=== PATIENT | male | born 1935 | race African-American/Black ===

== ENCOUNTER 2022-01-06 13:36 | Inpatient (IN) | payer BC, MEDICARE ==
[~2022-01-06] VITALS: Ht 182.9 cm; Wt 81.6 kg
[2022-01-06] MEDS ORDERED: DEXTROSE 50% WATER 50ML SYRINGE IV ONE ×2 (14:15→15:45)
[2022-01-06 14:26] LABS: BASOPHILS % 0.3 % (0.0-2.0); EOSINOPHILS % 0.7 % (0.0-5.0); HEMATOCRIT. 35.9 % (42.0-52.0); HEMOGLOBIN. 11.9 g/dL (14.0-18.0); LYMPHOCYTES % 11.4 % (20.0-50.0); MEAN CORPUSCULAR HEMOGLOBIN 34.9 pg (28.0-32.0); MEAN CORPUSCULAR VOLUME 105.2 fL (80.0-94.0); MEAN PLATELET VOLUME 7.4 fl (7.4-10.4); MONOCYTES % 6.4 % (2.0-8.0); NEUTROPHILS % 81.2 % (40.0-76.0); PLATELET 404 x1000/uL (130-400); RED BLOOD CELL COUNT 3.41 mill/uL (4.7-6.1); RED CELL DISTRIBUTION WIDTH 14.9 % (11.6-14.6)
[2022-01-06 14:33] LABS: CHLORIDE 105 mEq/L (98-107)
[2022-01-06 14:38] LABS: ETHANOL BLOOD < 10 mg/dL
[2022-01-06] MEDS ORDERED: DEXT 10% WATER 1,000 ML IV ONE (15:45)
[2022-01-06] MEDS: DEXTROSE 50% WATER 50ML SYRINGE IV NR (15:45)
[2022-01-06 15:48] LABS: CLARITY URINE CLEAR (CLEAR); COLOR URINE DARK YELLOW (YELLOW); KETONES URINE TRACE (NEGATIVE); LEUKOCYTE ESTERASE URINE NEGATIVE (NEGATIVE); NITRITE URINE NEGATIVE (NEGATIVE); OCCULT BLOOD URINE NEGATIVE (NEGATIVE); PROTEIN URINE 1+ (NEGATIVE); SPECIFIC GRAVITY URINE 1.022 (1.005-1.030); UROBILINOGEN URINE 0.2 E.U./dL (0.2-1.0)
[2022-01-06 16:13] LABS: *BARBITURATES SCREEN URINE NEGATIVE (NEGATIVE); CANNABINOID URINE SCREEN NEGATIVE (NEGATIVE)
[2022-01-06 16:14] LABS: *AMPHETAMINES SCREEN URINE NEGATIVE (NEGATIVE); *BENZODIAZEPINES SCREEN URINE PRESUMTIVE POSITIVE (NEGATIVE); *COCAINE SCREEN URINE NEGATIVE (NEGATIVE); METHADONE URINE SCREEN NEGATIVE (NEGATIVE); OPIATES URINE SCREEN NEGATIVE (NEGATIVE); PHENCYCLIDINE URINE SCREEN NEGATIVE (NEGATIVE)
[2022-01-06] MEDS ORDERED: ONDANSETRON HCL 4MG/2ML INJ IV PRN (23:30)
[2022-01-06] MEDS ORDERED: MORPHINE SULFATE 2 MG/ML CPJ (NOT FOR IM USE) IV PRN (23:30)
[2022-01-06] MEDS ORDERED: HYDROCODONE/ACETAMINOPHEN 5/325MG TABLET PO PRN (23:30)
[2022-01-06] MEDS ORDERED: MAGNESIUM/ALUMINUM HYDROXIDE/SIMETHICONE 30ML UDC PO PRN (23:30)
[2022-01-06] MEDS ORDERED: DIPHENHYDRAMINE 50MG/ML VIAL IV PRN (23:30)
[2022-01-06] MEDS ORDERED: DOCUSATE SODIUM 100MG CAPSULE PO PRN (23:30)
[2022-01-06] MEDS ORDERED: HYDRALAZINE 20MG/ML VIAL IV PRN (23:30)
[2022-01-06] MEDS ORDERED: IPRATROPIUM/ALBUTEROL 0.5-3(2.5)MG/3ML NEB HHN PRN (23:30)
[2022-01-06] MEDS ORDERED: CLONIDINE 0.1MG TABLET PO PRN (23:30)
[2022-01-06] MEDS ORDERED: GUAIFENESIN 200MG/10ML SUGAR FREE UDC PO PRN (23:30)
[2022-01-06] MEDS ORDERED: ENOXAPARIN 40MG/0.4ML SYR SUBCUT SCH (23:30)
[2022-01-06] MEDS: DEXT 10% WATER 1,000 ML IV SCH (23:30)
[2022-01-06] MEDS ORDERED: NALOXONE HCL 0.4MG/ML VIAL IV PRN (23:45)
[2022-01-07] VITALS (7 sets, daily range): BP systolic 121–149; BP diastolic 73–101
[2022-01-07] MEDS: DEXTROSE 50% WATER 50ML SYRINGE IV PRN ×2 (00:13→02:03)
[2022-01-07] MEDS: SODIUM CHLORIDE 0.9% INJ 3ML FLUSH IVF SCH ×3 (06:05→22:09)
[2022-01-07] MEDS ORDERED: HUM100IN SQ (06:26)
[2022-01-07] MEDS: ENOXAPARIN 40MG/0.4ML SYR SUBCUT SCH ×2 (09:00→18:16)
[2022-01-07 11:51] LABS: BASOPHILS % 0.6 % (0.0-2.0); EOSINOPHILS % 0.8 % (0.0-5.0); HEMOGLOBIN. 10.6 g/dL (14.0-18.0); LYMPHOCYTES % 8.2 % (20.0-50.0); MEAN CORPUSCULAR HEMOGLOBIN 35.7 pg (28.0-32.0); MEAN CORPUSCULAR VOLUME 104.2 fL (80.0-94.0); MEAN PLATELET VOLUME 7.1 fl (7.4-10.4); MONOCYTES % 5.4 % (2.0-8.0); PLATELET 370 x1000/uL (130-400); RED BLOOD CELL COUNT 2.98 mill/uL (4.7-6.1); RED CELL DISTRIBUTION WIDTH 14.5 % (11.6-14.6)
[2022-01-07 12:00] LABS: CHLORIDE 104 mEq/L (98-107)
[2022-01-07] MEDS: DEXTROSE 50% WATER 50ML SYRINGE IV NR (15:45)
[2022-01-07 15:50] LABS: CREATINE KINASE 58 IU/L (39-308); T4 FREE 1.17 ng/dL (0.76-1.46)
[2022-01-07 15:51] LABS: CREATINE KINASE MB FRACTION < 1.0 ng/mL (0.5-3.6)
[2022-01-07] MEDS: DEXT 10% WATER 1,000 ML IV SCH (22:10)
[2022-01-08] VITALS (12 sets, daily range): BP systolic 127–159; BP diastolic 70–90
[2022-01-08 01:21] LABS: CREATINE KINASE 47 IU/L (39-308)
[2022-01-08 01:22] LABS: CREATINE KINASE MB FRACTION < 1.0 ng/mL (0.5-3.6)
[2022-01-08] MEDS: ACETAMINOPHEN 325MG TABLET PO PRN (01:22)
[2022-01-08] MEDS: SODIUM CHLORIDE 0.9% INJ 3ML FLUSH IVF SCH ×3 (05:09→21:50)
[2022-01-08 08:20] LABS: CREATINE KINASE 43 IU/L (39-308)
[2022-01-08 08:21] LABS: CREATINE KINASE MB FRACTION < 1.0 ng/mL (0.5-3.6)
[2022-01-08] MEDS: ENOXAPARIN 40MG/0.4ML SYR SUBCUT SCH (08:49)
[2022-01-08] MEDS ORDERED: METF-416 MT (09:47)
[2022-01-08] MEDS ORDERED: ATOR40TA70 PO (09:49)
[2022-01-08] MEDS ORDERED: BENA40TA9 PO (09:50)
[2022-01-08] MEDS ORDERED: FURO20TA4 PO (09:50)
[2022-01-08] MEDS ORDERED: GABA-532 PO (09:50)
[2022-01-08] MEDS ORDERED: ESCI5TAB16 PO (09:50)
[2022-01-08] MEDS: DEXT 10% WATER 1,000 ML IV SCH (14:30)
[2022-01-08] MEDS: DEXTROSE 50% WATER 50ML SYRINGE IV NR (16:07)
[2022-01-09] VITALS (12 sets, daily range): BP systolic 126–162; BP diastolic 71–88
[2022-01-09] MEDS: LORAZEPAM 2MG/ML CPJ IV PRN ×2 (00:44→22:22)
[2022-01-09] MEDS: SODIUM CHLORIDE 0.9% INJ 3ML FLUSH IVF SCH ×3 (05:54→20:55)
[2022-01-09] MEDS: ENOXAPARIN 40MG/0.4ML SYR SUBCUT SCH (10:25)
[2022-01-09] MEDS ORDERED: *PATIENT'S OWN MEDICATION STORAGE XX SCH (10:45)
[2022-01-09] MEDS: DEXT 10% WATER 1,000 ML IV SCH (12:12)
[2022-01-09] MEDS: DEXTROSE 50% WATER 50ML SYRINGE IV NR (12:14)
[2022-01-10] VITALS (12 sets, daily range): BP systolic 123–148; BP diastolic 61–90
[2022-01-10] MEDS: SODIUM CHLORIDE 0.9% INJ 3ML FLUSH IVF SCH ×3 (05:14→21:10)
[2022-01-10] MEDS: ENOXAPARIN 40MG/0.4ML SYR SUBCUT SCH (08:50)
[2022-01-10] MEDS: BLOOD SUGAR DIAGNOSTIC STRIP TEST SCH ×3 (12:28→20:40)
[2022-01-10] MEDS ORDERED: INSULIN LISPRO 100 UNITS/ML SUBCUT SCH ×2 (12:30→13:00)
[2022-01-10] MEDS ORDERED: DEXTROSE 50% WATER 50ML SYRINGE IV PRN ×2 (12:30→15:15)
[2022-01-10] MEDS: INSULIN LISPRO 100 UNITS/ML SUBCUT SCH ×2 (17:41→21:09)
[2022-01-11] VITALS (12 sets, daily range): BP systolic 111–162; BP diastolic 58–111
[2022-01-11] MEDS: SODIUM CHLORIDE 0.9% INJ 3ML FLUSH IVF SCH ×3 (05:36→21:02)
[2022-01-11] MEDS: BLOOD SUGAR DIAGNOSTIC STRIP TEST SCH ×4 (07:38→20:58)
[2022-01-11] MEDS: INSULIN LISPRO 100 UNITS/ML SUBCUT SCH ×4 (09:49→21:02)
[2022-01-11] MEDS: ENOXAPARIN 40MG/0.4ML SYR SUBCUT SCH (09:50)
[2022-01-11] MEDS ORDERED: INSULIN LISPRO 100 UNITS/ML SUBCUT NR ×2 (12:30→12:45)
[2022-01-11] MEDS ORDERED: INSULIN LISPRO 100 UNITS/ML SUBCUT SCH (13:00)
[2022-01-11] MEDS: INSULIN GLARGINE 100 UNITS/ML SUBCUT SCH (22:46)
[2022-01-12] VITALS (8 sets, daily range): BP systolic 120–130; BP diastolic 51–78
[2022-01-12] MEDS: SODIUM CHLORIDE 0.9% INJ 3ML FLUSH IVF SCH ×3 (06:40→21:56)
[2022-01-12] MEDS: BLOOD SUGAR DIAGNOSTIC STRIP TEST SCH ×4 (07:30→21:07)
[2022-01-12] MEDS: ENOXAPARIN 40MG/0.4ML SYR SUBCUT SCH (08:30)
[2022-01-12] MEDS: INSULIN LISPRO 100 UNITS/ML SUBCUT SCH ×4 (08:34→21:55)
[2022-01-12] MEDS: SODIUM CHLORIDE 0.9% 1,000 ML IV SCH (11:00)
[2022-01-12] MEDS ORDERED: INSULIN LISPRO 100 UNITS/ML SUBCUT ONE (13:30)
[2022-01-12] MEDS ORDERED: LACTULOSE 20G/30ML UDC PO PRN (15:15)
[2022-01-12] MEDS: ACETAMINOPHEN 325MG TABLET PO PRN (21:07)
[2022-01-12] MEDS: INSULIN GLARGINE 100 UNITS/ML SUBCUT SCH (21:56)
[2022-01-13] VITALS: BP 136/73
[2022-01-13] MEDS: SODIUM CHLORIDE 0.9% 1,000 ML IV SCH ×2 (00:20→12:49)
[2022-01-13 04:00] VITALS: BP 134/78
[2022-01-13] MEDS: SODIUM CHLORIDE 0.9% INJ 3ML FLUSH IVF SCH ×2 (05:49→12:50)
[2022-01-13] MEDS: BLOOD SUGAR DIAGNOSTIC STRIP TEST SCH ×3 (07:30→16:57)
[2022-01-13 08:20] LABS: HEMATOCRIT. 30.5 % (42.0-52.0); HEMOGLOBIN. 10.4 g/dL (14.0-18.0); MEAN CORPUSCULAR HEMOGLOBIN 35.3 pg (28.0-32.0); MEAN CORPUSCULAR VOLUME 103.7 fL (80.0-94.0); MEAN PLATELET VOLUME 7.3 fl (7.4-10.4); PLATELET 312 x1000/uL (130-400); RED BLOOD CELL COUNT 2.94 mill/uL (4.7-6.1); RED CELL DISTRIBUTION WIDTH 14.8 % (11.6-14.6)
[2022-01-13 08:48] LABS: PLATELET ESTIMATE NORMAL
[2022-01-13] MEDS: INSULIN LISPRO 100 UNITS/ML SUBCUT SCH ×3 (09:00→17:53)
[2022-01-13] MEDS: ENOXAPARIN 40MG/0.4ML SYR SUBCUT SCH (09:01)
[2022-01-13 09:36] LABS: CHLORIDE 103 mEq/L (98-107)
[2022-01-13 12:39] VITALS: BP 141/81
[2022-01-13 13:39] VITALS: BP 140/86
[2022-01-13 16:27] VITALS: BP 140/86
== END 2022-01-13 18:30 | disposition home health service (06) | DRG 637 ==
LOC: ER 13:36 → EDBEDREQ 17:45 → MICUSO 18:27 → EDBEDREQ 19:45 → EDBEDREQTM 19:45 → 5EST 01-07 05:10
PROVIDERS: ADMIT Internal Medicine; ATTEND Internal Medicine
DX: E11.649 Type 2 diabetes mellitus with hypoglycemia without coma (principal); G93.41 Metabolic encephalopathy; E46 Unspecified protein-calorie malnutrition; D64.9 Anemia, unspecified; K21.9 Gastro-esophageal reflux disease without esophagitis; I95.9 Hypotension, unspecified; R26.81 Unsteadiness on feet; I10 Essential (primary) hypertension; Z20.822 Contact with and (suspected) exposure to COVID-19; Z68.24 Body mass index [BMI] 24.0-24.9, adult; Z79.4 Long term (current) use of insulin; Z79.84 Long term (current) use of oral hypoglycemic drugs
CPT/HCPCS: 36415; 71045; 80048; 80053; 80061; 80305; 80307; 80320; 80329; 81003; 82550; 82553; 82962; 83036; 83880; 84439; 84443; 84484; 85025; 85379; 87426; 93306; 93970; 97162; 99291; J1650; J1815; J2060; J2405; J7030; G0480